=== PATIENT | female | born 1975 | race Caucasian/White ===

== ENCOUNTER 2019-06-12 19:21 | Emergency (ER) | payer OTHER, SELFPAY ==
[2019-06-12] MEDS ORDERED: Ibuprofen 800 MG TAB ONE (19:53)
--- NOTE | 2019-06-12 20:03 | CT ---
EXAM: CT cervical spine PROVIDED CLINICAL HISTORY: Trauma COMPARISON: None FINDINGS: No evidence for fracture or traumatic subluxation. No prevertebral soft tissue swelling apparent. Vi sualized lung apices appear clear. IMPRESSION: No evidence for fracture or traumatic subluxation.
== END 2019-06-12 20:30 | disposition home or self-care (01) ==
LOC: NAV ERS 19:21
DX: S90.851A Superficial foreign body, right foot, initial encounter (principal); S16.1XXA Strain of muscle, fascia and tendon at neck level, initial encounter; R73.03 Prediabetes; V89.2XXA Person injured in unspecified motor-vehicle accident, traffic, initial encounter
CPT/HCPCS: 28190; 72125